=== PATIENT | male | born 1975 | race Asian ===

== ENCOUNTER 2021-05-01 14:34 | Emergency (ER) | payer MEDICAID ==
[~2021-05-01] VITALS: Ht 172.7 cm; Wt 87.1 kg
[2021-05-01 14:59] VITALS: BP 138/87
[2021-05-01] MEDS ORDERED: HYD2.5O TP (15:30)
[2021-05-01] MEDS ORDERED: ATA25 PO (15:30)
[2021-05-01] MEDS ORDERED: PRED20TA5 PO (15:30)
[2021-05-01] MEDS ORDERED: BACTO TP (15:30)
--- NOTE | 2021-05-01 15:44 | NUR ---
Patient discharged with v/s stable. Written and verbal after care instructions given and explained. Patient alert, oriented and verbalized understanding of instructions. Ambulatory with steady gait. All questions addressed prior to discharge. ID band removed. Patient advised to follow up with PMD. Rx of hydroxizine, mupirocin, hydrocortisone, prednisone given. Patient educated on indication of medication including possible reaction and side effects. Opportunity to ask questions provided and answered.
== END 2021-05-01 15:45 | disposition home or self-care (01) ==
LOC: MED 14:34
DX: L30.9 Dermatitis, unspecified (principal); Z79.899 Other long term (current) drug therapy
CPT/HCPCS: 99283

== ENCOUNTER 2021-05-09 07:46 | Emergency (ER) | payer MEDICAID ==
[~2021-05-09] VITALS: Ht 175.3 cm; Wt 81.6 kg
[~2021-05-09 07:46] MED LIST: ATA25 PO; BACTO TP; HYD2.5O TP; PRED20TA5 PO
[2021-05-09 07:50] VITALS: BP 139/88
--- NOTE | 2021-05-09 07:56 | NUR ---
Patient ambulated to bed 09 with steady/even gait.
--- NOTE | 2021-05-09 08:00 | NUR ---
DR FLORES AT BEDSIDE EVALUATING PT
--- NOTE | 2021-05-09 08:04 | NUR ---
46 y/o M BIB self from home with c/c medication refill. Patient A&Ox4, ambulatory, states he was seen here on 05/01/21. Patient reports he ran out of Prednisone for past 3 days and the rash has worsen; patient presented with rash to bilateral legs, abdomen, back, hands/wrist. Patient denies any fever/chills, chest pain, SOB. nausea, vomiting. Bed locked in lowest position, side rails x 1, call light in reach. PMH/Sx/Meds: Denies NKA
[2021-05-09] MEDS ORDERED: DIPH25TA53 PO (08:39)
[2021-05-09] MEDS ORDERED: PRED20TA5 PO (08:39)
[2021-05-09 08:52] VITALS: BP 139/88
[2021-05-09] MEDS ORDERED: HYD1C TP (08:52)
--- NOTE | 2021-05-09 08:53 | NUR ---
Patient discharged with v/s stable. Written and verbal after care instructions given and explained. Patient alert, oriented and verbalized understanding of instructions. Ambulatory with steady gait. All questions addressed prior to discharge. ID band removed. Patient advised to follow up with PMD. Rx of BENADRYL, DELTASONE AND HYDROCORTISONE CREAM given. Patient educated on indication of medication including possible reaction and side effects. Opportunity to ask questions provided and answered.
== END 2021-05-09 08:53 | disposition home or self-care (01) ==
LOC: MED 07:46
DX: R21 Rash and other nonspecific skin eruption (principal); Z79.899 Other long term (current) drug therapy
CPT/HCPCS: 99283

== ENCOUNTER 2021-05-23 13:17 | Emergency (ER) | payer MEDICAID ==
[~2021-05-23] VITALS: Ht 175.3 cm; Wt 86.6 kg
[~2021-05-23 13:17] MED LIST changes: +DIPH25TA53 PO; +HYD1C TP
[2021-05-23 13:30] VITALS: BP 138/85
--- NOTE | 2021-05-23 14:31 | NUR ---
PT AMBULATED TO CHAIR A
[2021-05-23] MEDS ORDERED: BACTO TP (14:48)
[2021-05-23] MEDS ORDERED: ATA25 PO (14:48)
[2021-05-23] MEDS ORDERED: HYD2.5O TP (14:48)
--- NOTE | 2021-05-23 15:01 | NUR ---
PT SEEN AND D/C BY IVANNA SEE
--- NOTE | 2021-05-23 15:02 | NUR ---
Patient discharged with v/s stable. Written and verbal after care instructions ABOUT MEDICATIONS AND ATOPIC DERMATITIS given and explained. Patient alert, oriented and verbalized understanding of instructions. Ambulatory with steady gait. All questions addressed prior to discharge. ID band removed. Patient advised to follow up with PMD. Rx of HYDROXYZINE HYDROCHLORIDE, MUPIROCIN, AND HYDROCORTISONE given. Patient educated on indication of medication including possible reaction and side effects. Opportunity to ask questions provided and answered.
== END 2021-05-23 15:02 | disposition home or self-care (01) ==
LOC: MED 13:17
DX: L30.9 Dermatitis, unspecified (principal)
CPT/HCPCS: 99281

== ENCOUNTER 2024-05-07 12:49 | Emergency (ER) | payer SELFPAY ==
[~2024-05-07] VITALS: Ht 172.7 cm; Wt 81.4 kg
[2024-05-07 12:57] VITALS: BP 126/83; PULSE 91; RESP 17; TEMP 97.7; O2SAT 99
[2024-05-07 13:55] LABS: BASOPHILS % (AUTO) 0.2 % (0.0-2.0); EOSINOPHILS % (AUTO) 14.2 % (0.0-4.0); HEMATOCRIT 38.2 % (36-52); HEMOGLOBIN 12.1 g/dL (12.0-18.0); LYMPHOCYTES # (AUTO) 2.2 K/uL (2.0-11.5); LYMPHOCYTES % (AUTO) 30.8 % (20.5-51.1); MEAN CORPUSCULAR HEMOGLOBIN 21 pg (27-31); MEAN CORPUSCULAR HGB CONC 32 g/dL (33-37); MEAN CORPUSCULAR VOLUME 67.2 fL (80-94); MONOCYTES # (AUTO) 0.5 K/uL (0.8-1.0); MONOCYTES % (AUTO) 7.4 % (1.7-9.3); NEUTROPHILS # (AUTO) 3.4 K/uL (1.8-7.7); NEUTROPHILS % (AUTO) 47.4 % (42.2-75.2); PLATELET COUNT (AUTO) 327 K/uL (140-450); RED BLOOD CELL COUNT(AUTO) 5.69 MIL/uL (4.20-6.10); RED CELL DISTRIBUTION WIDTH 16.9 % (11.6-13.7); WHITE BLOOD COUNT (AUTO) 7.1 K/uL (4.8-10.8)
[2024-05-07 14:10] LABS: ANION GAP 7.8 (8-16); CALCIUM 8.3 mg/dL (8.5-10.1); CARBON DIOXIDE 32.6 mmol/L (21-32); CREATININE 1.3 mg/dL (0.6-1.3); POTASSIUM 3.4 mmol/L (3.5-5.1)
[2024-05-07] MEDS ORDERED: CEPH-588 PO (14:37)
[2024-05-07 14:59] VITALS: BP 126/83; PULSE 91; RESP 17; TEMP 97.7; O2SAT 99
[2024-05-08] MEDS ORDERED: HYD2.5O TP (23:16)
[2024-05-08] MEDS ORDERED: ATA25 PO (23:16)
[2024-05-08] MEDS ORDERED: BACTO TP (23:16)
== END 2024-05-07 14:59 | disposition home or self-care (01) ==
LOC: MED 12:49
DX: L03.113 Cellulitis of right upper limb (principal); Z79.899 Other long term (current) drug therapy
CPT/HCPCS: 36415; 80048; 85025; 99283

== ENCOUNTER 2024-05-08 22:29 | Emergency (ER) | payer MEDICAID ==
[~2024-05-08] VITALS: Ht 175.3 cm; Wt 82.1 kg
[~2024-05-08 22:29] MED LIST changes: +CEPH-588 PO
[2024-05-08 22:42] VITALS: BP 126/87; PULSE 92; RESP 20; TEMP 97.6; O2SAT 100
[2024-05-08] MEDS ORDERED: HYD2.5O TP (23:16)
[2024-05-08] MEDS ORDERED: ATA25 PO (23:16)
[2024-05-08] MEDS ORDERED: BACTO TP (23:16)
[2024-05-08 23:50] VITALS: BP 126/87; PULSE 92; RESP 20; TEMP 97.6; O2SAT 100
== END 2024-05-08 23:50 | disposition home or self-care (01) ==
LOC: MED 22:29
DX: L30.9 Dermatitis, unspecified (principal); Z76.0 Encounter for issue of repeat prescription; R03.0 Elevated blood-pressure reading, without diagnosis of hypertension; Z79.1 Long term (current) use of non-steroidal anti-inflammatories (NSAID); Z79.2 Long term (current) use of antibiotics; Z79.899 Other long term (current) drug therapy
CPT/HCPCS: 99281